=== PATIENT | female | born 1965 | race Caucasian/White ===

== ENCOUNTER → 2016-08-06 | Outpatient (CLI) | payer OTHER | LOC: LAB 12:35 | DX: E78.5 Hyperlipidemia, unspecified (principal); Z79.891 Long term (current) use of opiate analgesic | CPT/HCPCS: 36415; 84450; 84460 ==

== ENCOUNTER → 2016-08-18 | Outpatient (CLI) | payer OTHER | LOC: HEART 5 13:25 | DX: M79.604 Pain in right leg (principal); M79.605 Pain in left leg; Z72.0 Tobacco use ==

== ENCOUNTER 2020-04-12 15:27 | Emergency (ER) | payer OTHER ==
[~2020-04-12 15:27] MED LIST: CEFDINIR250 MG/5 M PO; KEFLEX SUS250 MG/5 M PO
[2020-04-12] MEDS ORDERED: NAPROSYN500 MG PO (17:01)
== END 2020-04-12 17:05 | disposition home or self-care (01) ==
LOC: ER1 15:27
DX: S93.401A Sprain of unspecified ligament of right ankle, initial encounter (principal); W19.XXXA Unspecified fall, initial encounter
CPT/HCPCS: 29515; 73610; 73630; 99283